=== PATIENT | female | born 1950 | race Caucasian/White ===

== ENCOUNTER 2019-09-27 08:02 | Outpatient (CLI) | payer MEDICARE, SELFPAY ==
[2019-09-27 08:22] VITALS: BMI 36.3
--- NOTE | 2019-09-27 08:22 | ECG_ITS ---
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 Interpretive Statements NAME OF STUDY: LEXISCAN SESTAMIBI STRESS TEST INDICATION: Dyspnea on Exertion PROCEDURE: At the baseline, the blood pressure was 160/97 mmHg with a heart rate of 73 bpm and oxygen saturation 98%. The electrocardiogram showed sinus rhythm, normal axis with normal ST and T's. The Lexiscan was infused over a period of 20 seconds. A total of 0.4 milligrams of Lexiscan was infused. The stress phase was continued for a total of 5 minutes. Heart rate at the end of the stress phase was 101 bpm, oxygen saturation 97% with a blood pressure 165/95 mmHg. T wave inversion noted in lead II, 3, aVF, 1, V4 to V6 1 minute into infusion and resolved 2 minutes into the infusion. The EKG at the peak infusion revealed no significant ST-T wave changes. The study was terminated due to protocol completion. Sestamibi was injected 20 seconds after the Lexiscan infusion. Blood pressure at the end of the recovery phase was 164/99 mmHg, oxygen saturation 97% with a heart rate of 99 beats per minute. CONCLUSION: 1. No significant EKG changes with the LexiScan infusion. 2. No LexiScan induced chest pain or cardiac arrhythmia. 3. Normal blood pressure and heart rate response. 4. Sestamibi/sestamibi perfusion scan pending; see separate report. Electronically Signed On 10-02-2019 10:32:22 CDT by Mona Soni M.D. [id number]
--- NOTE | 2019-09-27 08:23 | NMCV_ITS ---
NM cesar perf SPECT r/s* [id number] Melissa Webster Age: 68 Gender: F : 1950 Exam Date: 09/27/2019 08:23 Ordering Phys: Jer Martel Technologist: ARMANI Membreno Exam Location: [facility] Indications: SANCHEZ STRESS TEST [facility] IMAGE PROTOCOL Rest/Stress 1 Lexiscan Day Radiopharmaceutical Dose (mCi) Administration Site Administered by Rest: Tc-99m 10.4 IV ARMANI Robbins Sestamibi Stress:Tc-99m 32.6 IV ARMANI Robbins Sestamibi Rest: 27-Sep-2019 60 Discovery 630 Stress: 27-Sep-2019 30 Discovery 630 0.4mg Lexiscan. Images obtained in supine and prone position. SPECT RESULTS Technical Quality: Excellent Raw Data Analysis: Normal Image Corrections: No attenuation or motion correction applied Summed Stress Score: 2 Summed Rest Score: 2 Summed Difference Score: 0 PERFUSION FINDINGS Small size perfusion abnormality of mild severity of apical lateral wall on rest and supine stress images with improved tracer uptake on prone stress images. This is likely suggestive of attenuation artifact. FUNCTIONAL RESULTS (calculated via Gated SPECT) Stress Image LV EF (%): 59 Stress EDV (mL):95 TID: 0.95 Stress ESV (mL):39 FUNCTIONAL FINDINGS: The left ventricle is normal in size. Transient Ischemia Dilatation of 0.95. There is normal left ventricular systolic function. The left ventricular ejection fraction is normal with a value of 59%. There is normal left ventricular wall thickening. Normal end-diastolic and end-systolic volumes. IMPRESSIONS 1. Myocardial perfusion imaging is normal. Attenuation artifact noted in apical lateral wall. 2. Overall left ventricular systolic function is normal without regional wall motion abnormalities. 3. The left ventricular ejection fraction is normal with a value of 59%. 4. Scan indicates low risk for cardiac events. Mona Soni MD (Electronically Signed) Final Date: 28 September 2019 17:37 S
--- NOTE | 2019-09-27 10:18 | SUR.PREOP ---
Patient reports no pain or discomfort prior to the start of the procedure.
[2019-09-27] MEDS: regadenoson 0.4 Mg/5 ml Syringe IVP (10:22)
[2019-09-27 10:46] VITALS: BP 132/84; PULSE 73
== END 2019-09-27 08:03 | disposition home or self-care (01) ==
LOC: RAD 08:09 → CDL 08:11
PROVIDERS: PCP Family Medicine; Visit Provider Family Medicine
DX: R06.09 Other forms of dyspnea (principal)
CPT/HCPCS: 78452; 93017; A9500; J2785